=== PATIENT | male | born 1950 | race Caucasian/White ===

== ENCOUNTER 2017-01-08 02:19 | Emergency (ER) | payer BC ==
[~2017-01-08] VITALS: Ht 185.4 cm; Wt 79.2 kg
[~2017-01-08 02:19] MED LIST: ACYCLOVIR400 MG PO; ANTI-FUNGAL12 TOP; ANUCORT-HC25 MG RE; CHLORTHALID25 MG PO; FENTANYL50 MCG/HR TD; FLEXERIL OR; FLEXERIL10 MG PO; KETOROLAC60 MG/2 ML IJ; LOPRESSOR25 MG PO; METHADONE40 MG OR; METOPROLOL25 M1 OR; MORPHINE SUL30 M3 OR; MORPHINE SUL30 M3 PO; MORPHINE SUL30 M5; MS CONTIN30 MG PO; ONDANSETRON4 MG PO; OXYCONTIN40 MG; OXYCONTIN40 MG OR; OXYCONTIN40 MG PO; PENICILLIN VK250 MG PO; PERCOCET 5/325M1 TAB OR; PHENERGAN SUP12.5 MG RE; PROCTOSOL HC2.5 % RE; RESTORIL15 MG PO; ROBAXIN-750750 MG OR; ROXICODONE30 MG OR; TOBRAMYCIN0.3 % OS; ULTRAM50 M1 OR; ULTRAM50 M1 PO; VALTREX500 MG PO
[2017-01-08] MEDS ORDERED: AMOXICILLIN500 MG PO (02:37)
[2017-01-08] MEDS ORDERED: CLINDAMYCIN300 M1 PO (02:59)
[2017-01-08] MEDS ORDERED: IBUPROFEN600 MG PO (02:59)
[2017-01-08 03:24] VITALS: BP 142/83
== END 2017-01-08 03:25 | disposition home or self-care (01) | DRG 159 ==
LOC: ED 02:19
DX: K08.89 Other specified disorders of teeth and supporting structures (principal); K05.10 Chronic gingivitis, plaque induced

== ENCOUNTER 2017-06-14 06:08 | Emergency (ER) | payer MEDICARE, MEDICAID ==
[~2017-06-14] VITALS: Ht 185.4 cm; Wt 80.4 kg
[~2017-06-14 06:08] MED LIST changes: +AMOXICILLIN500 MG PO; +CLINDAMYCIN300 M1 PO; +IBUPROFEN600 MG PO
[2017-06-14 07:29] VITALS: BP 147/83
== END 2017-06-14 07:54 | disposition home or self-care (01) ==
LOC: ED 06:08
DX: G89.29 Other chronic pain (principal); M54.5 Low back pain; M62.830 Muscle spasm of back

== ENCOUNTER 2017-06-30 22:27 | Emergency (ER) | payer MEDICARE, MEDICAID ==
[~2017-06-30] VITALS: Ht 185.4 cm; Wt 81.8 kg
--- NOTE | 2017-06-30 23:05 | NUR ---
BREATHING TREATMENT GIVEN. BREATHING TECH. FOR GOOD DEPOSITION TO THE LUNGS.
[2017-06-30 23:30] LABS: HEMATOCRIT 42.8 % (39.0-50.0); HEMOGLOBIN 14.7 g/dl (14.0-18.0); IMMATURE GRANULOCYTES 0.5 % (0.0-1.0); MEAN CELL VOLUME 91.5 fL CALC (80.0-100.0); MEAN CORPUSCULAR HGB 31.4 pG CALC (26.0-32.0); MEAN CORPUSCULAR HGB CONC 34.3 g/L CALC (32.0-36.0); NEUT# 3.17 thou/uL (1.82-7.42); RED BLOOD COUNT 4.68 mill/uL (4.70-6.10); RED CELL DISTRI WIDTH 11.5 % (11.5-15.5)
[2017-06-30 23:38] LABS: ALBUMIN 4.4 g/dL (3.2-5.0); ALKALINE PHOSPHATASE 80 u/l (38-126); ANION GAP 15 (6-22 (CALC)); BILIRUBIN, TOTAL 0.5 mg/dL (0.0-1.4); BUN 22 mg/dL (8-23); BUN/CREATININE RATIO 25 (12-20 (CALC)); CALCIUM 9.7 mg/dL (8.4-10.2); CARBON DIOXIDE 31 mmol/l (22-30); CHLORIDE 101 mmol/l (95-108); CREATININE 0.9 mg/dL (0.7-1.3); GFR > 60 ML/MIN (>=60 (CALC)); GFR FOR AFR.AMER. > 60 ML/MIN (>=60 (CALC)); GLUCOSE 150 mg/dL (82-115); POTASSIUM 4.1 mmol/l (3.5-5.1); SGOT/AST 25 u/l (19-48); SGPT/ALT 31 u/l (11-66); SODIUM 143 mmol/l (137-146); TOTAL PROTEIN 7.7 g/dL (6.3-8.2)
[2017-06-30 23:50] LABS: MYOGLOBIN 36 ng/mL (0 - 121)
[2017-07-01] MEDS ORDERED: VENTOLIN HFA IN (01:09)
[2017-07-01] MEDS ORDERED: AMOXICILLIN500 M2 PO (01:09)
[2017-07-01] MEDS ORDERED: MEDDOSEPAK PO (01:09)
[2017-07-01 01:20] VITALS: BP 155/77
== END 2017-07-01 01:20 | disposition home or self-care (01) ==
LOC: ED 22:27
PROVIDERS: Emergency Medicine
DX: J44.1 Chronic obstructive pulmonary disease with (acute) exacerbation (principal); M06.9 Rheumatoid arthritis, unspecified; I48.91 Unspecified atrial fibrillation; Z87.442 Personal history of urinary calculi; R06.02 Shortness of breath

== ENCOUNTER 2017-08-08 04:03 | Emergency (ER) | payer MEDICARE, MEDICAID ==
[~2017-08-08] VITALS: Ht 185.4 cm; Wt 80.8 kg
[~2017-08-08 04:03] MED LIST changes: +AMOXICILLIN500 M2 PO; +MEDDOSEPAK PO; +VENTOLIN HFA IN
[2017-08-08 04:30] VITALS: BP 157/99
== END 2017-08-08 04:30 | disposition home or self-care (01) ==
LOC: ED 04:03
DX: F11.23 Opioid dependence with withdrawal (principal); T40.2X5A Adverse effect of other opioids, initial encounter; Y92.009 Unspecified place in unspecified non-institutional (private) residence as the place of occurrence of the external cause; M54.9 Dorsalgia, unspecified; M06.9 Rheumatoid arthritis, unspecified

== ENCOUNTER 2017-08-10 07:09 | Emergency (ER) | payer MEDICARE, MEDICAID ==
[~2017-08-10] VITALS: Ht 185.4 cm; Wt 79.0 kg
[2017-08-10 07:44] LABS: HEMATOCRIT 47.4 % (39.0-50.0); HEMOGLOBIN 16.6 g/dl (14.0-18.0); IMMATURE GRANULOCYTES 0.4 % (0.0-1.0); MEAN CELL VOLUME 88.9 fL CALC (80.0-100.0); MEAN CORPUSCULAR HGB 31.1 pG CALC (26.0-32.0); NEUT# 6.22 thou/uL (1.82-7.42); RED BLOOD COUNT 5.33 mill/uL (4.70-6.10); RED CELL DISTRI WIDTH 11.7 % (11.5-15.5)
[2017-08-10 08:00] LABS: ALBUMIN 4.6 g/dL (3.2-5.0); ALKALINE PHOSPHATASE 91 u/l (38-126); ANION GAP 21 (6-22 (CALC)); BUN 21 mg/dL (8-23); BUN/CREATININE RATIO 21 (12-20 (CALC)); CALCIUM 9.6 mg/dL (8.4-10.2); CARBON DIOXIDE 20 mmol/l (22-30); CHLORIDE 105 mmol/l (95-108); GFR > 60 ML/MIN (>=60 (CALC)); GFR FOR AFR.AMER. > 60 ML/MIN (>=60 (CALC)); GLUCOSE 231 mg/dL (82-115); POTASSIUM 3.7 mmol/l (3.5-5.1); SGOT/AST 27 u/l (19-48); SGPT/ALT 24 u/l (11-66); SODIUM 142 mmol/l (137-146); TOTAL PROTEIN 7.6 g/dL (6.3-8.2)
[2017-08-10] MEDS ORDERED: ZOFRAN4 MG/TAB PO (08:52)
[2017-08-10] MEDS ORDERED: CATAPRES0.1 MG PO (08:52)
[2017-08-10 09:09] VITALS: BP 148/90
== END 2017-08-10 09:15 | disposition home or self-care (01) ==
LOC: ED 07:09
PROVIDERS: Emergency Medicine
DX: F11.23 Opioid dependence with withdrawal (principal); T40.2X5A Adverse effect of other opioids, initial encounter; R53.1 Weakness; R11.2 Nausea with vomiting, unspecified; R19.7 Diarrhea, unspecified; F41.9 Anxiety disorder, unspecified; R00.2 Palpitations; R06.02 Shortness of breath; Y92.009 Unspecified place in unspecified non-institutional (private) residence as the place of occurrence of the external cause

== ENCOUNTER 2017-08-24 05:30 | Emergency (ER) | payer MEDICARE, MEDICAID ==
[~2017-08-24] VITALS: Ht 185.4 cm; Wt 79.0 kg
[~2017-08-24 05:30] MED LIST changes: +CATAPRES0.1 MG PO; +ZOFRAN4 MG/TAB PO
[2017-08-24 06:03] LABS: HEMATOCRIT 44.8 % (39.0-50.0); HEMOGLOBIN 15.2 g/dl (14.0-18.0); IMMATURE GRANULOCYTES 0.6 % (0.0-1.0); MEAN CELL VOLUME 91.8 fL CALC (80.0-100.0); MEAN CORPUSCULAR HGB 31.1 pG CALC (26.0-32.0); MEAN CORPUSCULAR HGB CONC 33.9 g/L CALC (32.0-36.0); NEUT# 8.24 thou/uL (1.82-7.42); RED BLOOD COUNT 4.88 mill/uL (4.70-6.10); RED CELL DISTRI WIDTH 11.9 % (11.5-15.5)
[2017-08-24 06:11] LABS: ALBUMIN 3.9 g/dL (3.2-5.0); ALKALINE PHOSPHATASE 78 u/l (38-126); ANION GAP 17 (6-22 (CALC)); BILIRUBIN, TOTAL 0.7 mg/dL (0.0-1.4); BUN 22 mg/dL (8-23); BUN/CREATININE RATIO 24 (12-20 (CALC)); CALCIUM 8.4 mg/dL (8.4-10.2); CARBON DIOXIDE 20 mmol/l (22-30); CHLORIDE 107 mmol/l (95-108); CREATININE 0.9 mg/dL (0.7-1.3); GFR > 60 ML/MIN (>=60 (CALC)); GFR FOR AFR.AMER. > 60 ML/MIN (>=60 (CALC)); GLUCOSE 220 mg/dL (82-115); MAGNESIUM 1.6 mg/dL (1.6-2.3); POTASSIUM 4.3 mmol/l (3.5-5.1); SGOT/AST 22 u/l (19-48); SGPT/ALT 31 u/l (11-66); SODIUM 140 mmol/l (137-146); TOTAL PROTEIN 6.3 g/dL (6.3-8.2)
[2017-08-24 06:34] LABS: URINE BILIRUBIN - DIPSTICK NEGATIVE (NEGATIVE); URINE BLOOD DIPSTICK NEGATIVE (NEGATIVE); URINE COLOR YELLOW; URINE GLUCOSE - DIPSTICK NEGATIVE (NEGATIVE); URINE KETONE NEGATIVE (NEGATIVE); URINE LEUK ESTERASE NEGATIVE (NEGATIVE); URINE NITRITE - DIPSTICK NEGATIVE (Negative); URINE PROTEIN - DIPSTICK NEGATIVE (NEG-TRACE); URINE SPECIFIC GRAVITY <=1.005; URINE UROBILINOGEN - DIPSTICK 0.2 E.U./dL (0.2)
[2017-08-24 06:35] LABS: URINE CLARITY CLEAR
[2017-08-24 06:41] LABS: BARBITURATES NEGATIVE (NEGATIVE); COCAINE NEGATIVE (NEGATIVE); METHADONE NEGATIVE (NEGATIVE); OXCYCODONE NEGATIVE (NEGATIVE); TETRAHYDROCANNABIONOL NEGATIVE (NEGATIVE); TRICYLIC ANTIDEPRESSANTS NEGATIVE (NEGATIVE)
[2017-08-24 07:41] VITALS: BP 128/76
== END 2017-08-24 08:00 | disposition home or self-care (01) ==
LOC: ED 05:30
PROVIDERS: Emergency Medicine
DX: I47.1 Supraventricular tachycardia (principal); M06.9 Rheumatoid arthritis, unspecified; I48.91 Unspecified atrial fibrillation

== ENCOUNTER 2017-11-04 08:47 | Emergency (ER) | payer MEDICARE, MEDICAID ==
[~2017-11-04] VITALS: Ht 185.4 cm; Wt 100.0 kg
[2017-11-04] MEDS ORDERED: BLOOD THINNER (09:37)
[2017-11-04] MEDS ORDERED: [UNRECOGNIZED DRUG - REMARK] (09:38)
[2017-11-04 09:43] LABS: HEMATOCRIT 46.9 % (39.0-50.0); HEMOGLOBIN 16.1 g/dl (14.0-18.0); IMMATURE GRANULOCYTES 0.7 % (0.0-1.0); MEAN CELL VOLUME 91.1 fL CALC (80.0-100.0); MEAN CORPUSCULAR HGB 31.3 pG CALC (26.0-32.0); MEAN CORPUSCULAR HGB CONC 34.3 g/L CALC (32.0-36.0); NEUT# 7.6 thou/uL (1.82-7.42); RED BLOOD COUNT 5.15 mill/uL (4.70-6.10); RED CELL DISTRI WIDTH 11.8 % (11.5-15.5)
[2017-11-04 09:50] LABS: BUN 28 mg/dL (8-23); BUN/CREATININE RATIO 24 (12-20 (CALC)); CARBON DIOXIDE 24 mmol/l (22-30); CHLORIDE 104 mmol/l (95-108); CREATININE 1.2 mg/dL (0.7-1.3); GFR > 60 ML/MIN (>=60 (CALC)); GFR FOR AFR.AMER. > 60 ML/MIN (>=60 (CALC)); SODIUM 143 mmol/l (137-146)
[2017-11-04 09:51] LABS: ANION GAP 18 (6-22 (CALC)); POTASSIUM 3.4 mmol/l (3.5-5.1)
[2017-11-04 10:32] VITALS: BP 114/67
== END 2017-11-04 10:32 | disposition home or self-care (01) ==
LOC: ED 08:47 → ED-I 10:02 → ED 10:32
PROVIDERS: Family Medicine
DX: I47.1 Supraventricular tachycardia (principal); E11.9 Type 2 diabetes mellitus without complications

== ENCOUNTER 2018-06-28 10:55 | Emergency (ER) | payer MEDICARE, MEDICAID ==
[~2018-06-28] VITALS: Ht 185.4 cm; Wt 84.1 kg
[~2018-06-28 10:55] MED LIST changes: +BLOOD THINNER; +[UNRECOGNIZED DRUG - REMARK]
[2018-06-28] MEDS ORDERED: FENTANYL25 MCG/HR TD (11:22)
[2018-06-28] MEDS ORDERED: MORPHINE SUL30 M5 PO (11:23)
[2018-06-28] MEDS ORDERED: GLIMEPIRIDE2 MG PO (11:24)
[2018-06-28] MEDS ORDERED: METOPROL TAR25 MG PO (11:24)
[2018-06-28] MEDS ORDERED: PROAIR HFA108 MCG/AC IN (12:03)
[2018-06-28 12:07] VITALS: BP 146/84
== END 2018-06-28 12:10 | disposition home or self-care (01) ==
LOC: ED 10:55
DX: J44.9 Chronic obstructive pulmonary disease, unspecified (principal); R05 Cough; E11.9 Type 2 diabetes mellitus without complications

== ENCOUNTER 2018-08-14 18:26 | Emergency (ER) | payer MEDICARE, MEDICAID ==
[~2018-08-14] VITALS: Ht 185.4 cm; Wt 81.8 kg
[~2018-08-14 18:26] MED LIST changes: +FENTANYL25 MCG/HR TD; +GLIMEPIRIDE2 MG PO; +METOPROL TAR25 MG PO; +MORPHINE SUL30 M5 PO; +PROAIR HFA108 MCG/AC IN
[2018-08-14 19:18] LABS: HEMOGLOBIN 14.3 g/dl (14.0-18.0); IMMATURE GRANULOCYTES 0.8 % (0.0-5.0); MEAN CORPUSCULAR HGB 31.2 pG CALC (26.0-32.0); MEAN CORPUSCULAR HGB CONC 35.4 g/L CALC (32.0-36.0); NEUT# 6.38 thou/uL (1.82-7.42); RED BLOOD COUNT 4.59 mill/uL (4.70-6.10); RED CELL DISTRI WIDTH 11.6 % (11.5-15.5)
[2018-08-14 19:22] LABS: HEMATOCRIT 40.4 % (39.0-50.0)
[2018-08-14 19:32] LABS: ALBUMIN 3.5 g/dL (3.2-5.0); ALKALINE PHOSPHATASE 70 u/l (38-126); AMYLASE 71 u/l (30-110); ANION GAP 15 (6-22 (CALC)); BILIRUBIN, TOTAL 0.4 mg/dL (0.0-1.4); BUN 18 mg/dL (8-23); BUN/CREATININE RATIO 23 (12-20 (CALC)); CARBON DIOXIDE 22 mmol/l (22-30); CHLORIDE 107 mmol/l (95-108); CREATININE 0.8 mg/dL (0.7-1.3); GFR > 60 ML/MIN (>=60 (CALC)); GFR FOR AFR.AMER. > 60 ML/MIN (>=60 (CALC)); LIPASE 58 u/l (23-300); POTASSIUM 3.4 mmol/l (3.5-5.1); SGOT/AST 16 u/l (19-48); SODIUM 140 mmol/l (137-146); TOTAL PROTEIN 6.4 g/dL (6.3-8.2)
[2018-08-14] MEDS ORDERED: ZITHROMAX500 MG PO (21:14)
[2018-08-14 21:31] VITALS: BP 162/83
[2018-08-14 22:10] LABS: URINE BILIRUBIN - DIPSTICK NEGATIVE (NEGATIVE); URINE BLOOD DIPSTICK NEGATIVE (NEGATIVE); URINE COLOR YELLOW; URINE GLUCOSE - DIPSTICK NEGATIVE (NEGATIVE); URINE KETONE 15 mg/dL (NEGATIVE); URINE LEUK ESTERASE NEGATIVE (NEGATIVE); URINE NITRITE - DIPSTICK NEGATIVE (Negative); URINE PH 5.5 (4.5-8.0); URINE PROTEIN - DIPSTICK NEGATIVE (NEG-TRACE); URINE SPECIFIC GRAVITY 1.025; URINE UROBILINOGEN - DIPSTICK 0.2 E.U./dL (0.2)
== END 2018-08-14 21:46 | disposition home or self-care (01) ==
LOC: ED 18:26
DX: J18.9 Pneumonia, unspecified organism (principal); K80.80 Other cholelithiasis without obstruction; R10.11 Right upper quadrant pain
CPT/HCPCS: Q9967

== ENCOUNTER 2018-10-10 04:10 | Observation (INO) | payer MEDICARE, MEDICAID ==
[~2018-10-10] VITALS: Ht 185.4 cm; Wt 79.4 kg
[~2018-10-10 04:10] MED LIST changes: +ZITHROMAX500 MG PO
[2018-10-10 04:59] LABS: HEMATOCRIT 44.4 % (39.0-50.0); HEMOGLOBIN 15.6 g/dl (14.0-18.0); IMMATURE GRANULOCYTES 0.4 % (0.0-5.0); MEAN CELL VOLUME 89.2 fL CALC (80.0-100.0); MEAN CORPUSCULAR HGB 31.3 pG CALC (26.0-32.0); MEAN CORPUSCULAR HGB CONC 35.1 g/L CALC (32.0-36.0); NEUT# 6.24 thou/uL (1.82-7.42); RED BLOOD COUNT 4.98 mill/uL (4.70-6.10); RED CELL DISTRI WIDTH 12.1 % (11.5-15.5)
[2018-10-10 05:05] LABS: ALKALINE PHOSPHATASE 77 u/l (38-126); BILIRUBIN, TOTAL 0.8 mg/dL (0.0-1.4); BUN 18 mg/dL (8-23); BUN/CREATININE RATIO 20 (12-20 (CALC)); CHLORIDE 109 mmol/l (95-108); CREATININE 0.9 mg/dL (0.7-1.3); GFR > 60 ML/MIN (>=60 (CALC)); GFR FOR AFR.AMER. > 60 ML/MIN (>=60 (CALC)); POTASSIUM 3.4 mmol/l (3.5-5.1); SGOT/AST 27 u/l (19-48); SODIUM 141 mmol/l (137-146); TOTAL PROTEIN 7.2 g/dL (6.3-8.2)
[2018-10-10 05:06] LABS: ANION GAP 18 (6-22 (CALC)); CARBON DIOXIDE 17 mmol/l (22-30)
[2018-10-10 05:18] LABS: MYOGLOBIN 38 ng/mL (0 - 121)
[2018-10-10] MEDS ORDERED: ATORVASTATIN CA10 MG PO (05:20)
[2018-10-10] MEDS ORDERED: CLONIDINE0.1 MG PO (05:26)
[2018-10-10] MEDS ORDERED: DURAGESIC75 MCG/H1 TD (05:26)
[2018-10-10] MEDS ORDERED: GABAPENTIN100 MG PO (05:29)
[2018-10-10] MEDS ORDERED: MORPHINE SUL30 M3 PO (05:34)
[2018-10-10] MEDS ORDERED: ZOFRAN4 MG PO (05:34)
[2018-10-10] MEDS ORDERED: VENTOLIN H108 MCG/AC IN (05:37)
[2018-10-10 05:57] LABS: CHOLESTEROL HDL RATIO 3.1 (<4.4 (CALC))
[2018-10-10 06:00] VITALS: BP 128/80
[2018-10-10 06:02] LABS: URINE BILIRUBIN - DIPSTICK NEGATIVE (NEGATIVE); URINE BLOOD DIPSTICK NEGATIVE (NEGATIVE); URINE COLOR YELLOW; URINE GLUCOSE - DIPSTICK NEGATIVE (NEGATIVE); URINE KETONE 15 mg/dL (NEGATIVE); URINE LEUK ESTERASE NEGATIVE (NEGATIVE); URINE NITRITE - DIPSTICK NEGATIVE (Negative); URINE PH 6.5 (4.5-8.0); URINE PROTEIN - DIPSTICK NEGATIVE (NEG-TRACE); URINE SPECIFIC GRAVITY 1.015; URINE UROBILINOGEN - DIPSTICK 0.2 E.U./dL (0.2)
[2018-10-10 09:03] VITALS: BP 133/81
[2018-10-10 11:40] VITALS: BP 150/92
[2018-10-10 16:09] VITALS: BP 151/85
[2018-10-10 19:02] VITALS: BP 123/67
[2018-10-10 23:32] VITALS: BP 119/75
[2018-10-11 04:44] VITALS: BP 137/78
[2018-10-11 08:34] VITALS: BP 175/91
[2018-10-11 08:42] LABS: HEMOGLOBIN 14.2 g/dl (14.0-18.0); MEAN CELL VOLUME 89.7 fL CALC (80.0-100.0); MEAN CORPUSCULAR HGB 31.1 pG CALC (26.0-32.0); MEAN CORPUSCULAR HGB CONC 34.6 g/L CALC (32.0-36.0); RED BLOOD COUNT 4.57 mill/uL (4.70-6.10)
[2018-10-11 09:09] LABS: ANION GAP 14 (6-22 (CALC)); BUN 11 mg/dL (8-23); BUN/CREATININE RATIO 15 (12-20 (CALC)); CHLORIDE 103 mmol/l (95-108); CREATININE 0.7 mg/dL (0.7-1.3); GFR > 60 ML/MIN (>=60 (CALC)); GFR FOR AFR.AMER. > 60 ML/MIN (>=60 (CALC)); POTASSIUM 3.3 mmol/l (3.5-5.1); SODIUM 137 mmol/l (137-146)
[2018-10-11 09:44] LABS: CARBON DIOXIDE 23 mmol/l (22-30)
[2018-10-11 11:21] VITALS: BP 153/87
[2018-10-11] MEDS ORDERED: FENTANYL25 MCG/HR TD (12:49)
[2018-10-11] MEDS ORDERED: TRAMADOL HCL50 MG PO (12:49)
== END 2018-10-11 13:32 | disposition home or self-care (01) ==
LOC: ED 04:10 → ED-I 05:10 → ED 05:41 → MS2 05:42
PROVIDERS: Emergency Medicine; Nurse Practitioner Family; ADMIT Internal Medicine; ATTEND Internal Medicine
DX: I47.1 Supraventricular tachycardia (principal); F11.23 Opioid dependence with withdrawal; R74.8 Abnormal levels of other serum enzymes; E11.9 Type 2 diabetes mellitus without complications; E86.0 Dehydration; E87.6 Hypokalemia; G89.4 Chronic pain syndrome; Z87.891 Personal history of nicotine dependence; Z79.84 Long term (current) use of oral hypoglycemic drugs; R00.2 Palpitations; R11.2 Nausea with vomiting, unspecified; R19.7 Diarrhea, unspecified
CPT/HCPCS: J0153

== ENCOUNTER 2019-08-31 | Emergency (ER) | payer MEDICARE, MEDICAID ==
[~2019-08-31] MED LIST changes: +ATORVASTATIN CA10 MG PO; +CLONIDINE0.1 MG PO; +DURAGESIC75 MCG/H1 TD; +GABAPENTIN100 MG PO; +TRAMADOL HCL50 MG PO; +VENTOLIN H108 MCG/AC IN; +ZOFRAN4 MG PO
[2019-08-31 19:01] LABS: HEMATOCRIT 42.2 % (39.0-50.0); HEMOGLOBIN 14.4 g/dl (14.0-18.0); IMMATURE GRANULOCYTES 0.5 % (0.0-5.0); MEAN CORPUSCULAR HGB 31.7 pG CALC (26.0-32.0); MEAN CORPUSCULAR HGB CONC 34.1 g/L CALC (32.0-36.0); NEUT# 4.53 thou/uL (1.82-7.42); RED BLOOD COUNT 4.54 mill/uL (4.70-6.10); RED CELL DISTRI WIDTH 11.9 % (11.5-15.5)
[2019-08-31 19:09] LABS: ACT PARTIAL THROMBO TIME 25.1 SECONDS (20.0-32.5); PROTHROMBIN TIME 10.1 SECONDS (9.0-12.5)
[2019-08-31 19:11] LABS: ALKALINE PHOSPHATASE 64 u/l (38-126); ANION GAP 14 (6-22 (CALC)); BILIRUBIN, TOTAL 0.5 mg/dL (0.0-1.4); BUN 22 mg/dL (8-23); BUN/CREATININE RATIO 21 (12-20 (CALC)); CARBON DIOXIDE 25 mmol/l (22-30); CHLORIDE 105 mmol/l (95-108); GFR > 60 ML/MIN (>=60 (CALC)); GFR FOR AFR.AMER. > 60 ML/MIN (>=60 (CALC)); POTASSIUM 4.8 mmol/l (3.5-5.1); SGOT/AST 18 u/l (19-48); SODIUM 139 mmol/l (137-146)
== END 2019-08-31 19:49 | disposition home or self-care (01) ==
DX: I47.1 Supraventricular tachycardia (principal); E11.9 Type 2 diabetes mellitus without complications; Z79.84 Long term (current) use of oral hypoglycemic drugs
CPT/HCPCS: J0153

== ENCOUNTER 2019-10-10 | Emergency (ER) | payer MEDICARE, MEDICAID ==
--- NOTE | 2019-10-10 18:53 | NUR ---
BREATHING TREATMENT GIVEN. BREATHING TECH. FOR GOOD DEPOSITION TO THE LUNGS.
[2019-10-10 18:57] LABS: HEMATOCRIT 38.1 % (39.0-50.0); HEMOGLOBIN 12.8 g/dl (14.0-18.0); IMMATURE GRANULOCYTES 0.5 % (0.0-5.0); MEAN CELL VOLUME 91.4 fL CALC (80.0-100.0); MEAN CORPUSCULAR HGB 30.7 pG CALC (26.0-32.0); MEAN CORPUSCULAR HGB CONC 33.6 g/L CALC (32.0-36.0); NEUT# 6.05 thou/uL (1.82-7.42); RED BLOOD COUNT 4.17 mill/uL (4.70-6.10); RED CELL DISTRI WIDTH 11.4 % (11.5-15.5)
[2019-10-10 19:22] LABS: ACT PARTIAL THROMBO TIME 27.2 SECONDS (20.0-32.5); INTERNATIONAL NORMALIZED RATIO 0.9 RATIO (0.7-1.3); PROTHROMBIN TIME 9.8 SECONDS (9.0-12.5)
[2019-10-10 19:37] LABS: ALBUMIN 3.8 g/dL (3.2-5.0); ALKALINE PHOSPHATASE 75 u/l (38-126); ANION GAP 12 (6-22 (CALC)); BUN 17 mg/dL (8-23); BUN/CREATININE RATIO 24 (12-20 (CALC)); CARBON DIOXIDE 30 mmol/l (22-30); CHLORIDE 97 mmol/l (95-108); CREATININE 0.7 mg/dL (0.7-1.3); GFR > 60 ML/MIN (>=60 (CALC)); GFR FOR AFR.AMER. > 60 ML/MIN (>=60 (CALC)); LIPASE 11 u/l (23-300); POTASSIUM 4.4 mmol/l (3.5-5.1); SGOT/AST 18 u/l (19-48); SODIUM 135 mmol/l (137-146)
[2019-10-10 19:41] LABS: BILIRUBIN, TOTAL 0.9 mg/dL (0.0-1.4)
[2019-10-10] MEDS ORDERED: METFORMIN1000 MG PO (22:05)
[2019-10-10] MEDS ORDERED: [UNRECOGNIZED DRUG - OTHER] TD (22:06)
[2019-10-10] MEDS ORDERED: ULTRAM50 M1 PO (22:07)
[2019-10-10] MEDS ORDERED: ZITHROMAX Z-PA250 MG PO (22:20)
== END 2019-10-10 23:01 | disposition home or self-care (01) ==
DX: J40 Bronchitis, not specified as acute or chronic (principal); E11.9 Type 2 diabetes mellitus without complications; R06.02 Shortness of breath

== ENCOUNTER 2019-10-27 12:19 | Emergency (ER) | payer MEDICARE, MEDICAID ==
[~2019-10-27 12:19] MED LIST changes: +METFORMIN1000 MG PO; +ZITHROMAX Z-PA250 MG PO; +[UNRECOGNIZED DRUG - OTHER] TD
== END 2019-10-27 12:40 | disposition left against medical advice (07) ==
LOC: ED 12:19 → LWOBS 12:39
DX: Z53.21 Procedure and treatment not carried out due to patient leaving prior to being seen by health care provider (principal)

== ENCOUNTER 2019-10-29 | Emergency (ER) | payer MEDICARE, MEDICAID | END 2019-10-29 10:02 | disposition home or self-care (01) | DX: T75.89XA Other specified effects of external causes, initial encounter (principal); E11.9 Type 2 diabetes mellitus without complications; X58.XXXA Exposure to other specified factors, initial encounter; Y92.009 Unspecified place in unspecified non-institutional (private) residence as the place of occurrence of the external cause; Z79.84 Long term (current) use of oral hypoglycemic drugs ==

== ENCOUNTER 2020-03-02 08:34 | Emergency (ER) | payer MEDICARE, MEDICAID ==
[~2020-03-02] VITALS: Ht 185.4 cm; Wt 80.0 kg
[2020-03-02 09:12] LABS: HEMATOCRIT 41.5 % (39.0-50.0); HEMOGLOBIN 13.7 g/dl (14.0-18.0); IMMATURE GRANULOCYTES 0.7 % (0.0-5.0); MEAN CELL VOLUME 91.4 fL CALC (80.0-100.0); MEAN CORPUSCULAR HGB 30.2 pG CALC (26.0-32.0); NEUT# 3.52 thou/uL (1.82-7.42); RED BLOOD COUNT 4.54 mill/uL (4.70-6.10); RED CELL DISTRI WIDTH 11.9 % (11.5-15.5)
[2020-03-02 09:30] LABS: ALBUMIN 4.5 g/dL (3.2-5.0); ALKALINE PHOSPHATASE 64 u/l (38-126); ANION GAP 12 (6-22 (CALC)); BILIRUBIN, TOTAL 0.3 mg/dL (0.0-1.4); BUN 18 mg/dL (8-23); BUN/CREATININE RATIO 19 (12-20 (CALC)); CARBON DIOXIDE 30 mmol/l (22-30); CHLORIDE 100 mmol/l (95-108); CREATININE 0.9 mg/dL (0.7-1.3); GFR > 60 ML/MIN (>=60 (CALC)); GFR FOR AFR.AMER. > 60 ML/MIN (>=60 (CALC)); POTASSIUM 3.9 mmol/l (3.5-5.1); SGOT/AST 26 u/l (19-48); SODIUM 138 mmol/l (137-146); TOTAL PROTEIN 7.5 g/dL (6.3-8.2)
[2020-03-02 10:22] LABS: URINE BILIRUBIN - DIPSTICK NEGATIVE (NEGATIVE); URINE BLOOD DIPSTICK NEGATIVE (NEGATIVE); URINE COLOR YELLOW; URINE GLUCOSE - DIPSTICK NEGATIVE (NEGATIVE); URINE KETONE NEGATIVE (NEGATIVE); URINE LEUK ESTERASE NEGATIVE (NEGATIVE); URINE NITRITE - DIPSTICK NEGATIVE (Negative); URINE PH 5.5 (4.5-8.0); URINE PROTEIN - DIPSTICK NEGATIVE (NEG-TRACE); URINE UROBILINOGEN - DIPSTICK 0.2 E.U./dL (0.2)
[2020-03-02 10:50] VITALS: BP 130/92
[2020-03-02] MEDS ORDERED: TRESIBA FL100 UNIT/M SC (10:50)
== END 2020-03-02 10:50 | disposition home or self-care (01) ==
LOC: ED 08:34
PROVIDERS: Family Medicine
DX: R55 Syncope and collapse (principal); I48.92 Unspecified atrial flutter; E11.9 Type 2 diabetes mellitus without complications; Z79.84 Long term (current) use of oral hypoglycemic drugs

== ENCOUNTER 2020-03-18 16:09 | Observation (INO) | payer MEDICARE, MEDICAID ==
[~2020-03-18] VITALS: Ht 185.4 cm; Wt 77.1 kg
[~2020-03-18 16:09] MED LIST changes: +TRESIBA FL100 UNIT/M SC
--- NOTE | 2020-03-18 16:12 | NUR ---
pt to room #6 with steady gait for bedside triage
--- NOTE | 2020-03-18 16:15 | NUR ---
HEART RATE 187. 6 MG OF ADENOSINE GIVEN RAPID IVP BY MONIKA BRENNAN. PT TOLERATED WELL. 1617 PATIENT CONVERTED TO NORMAL SINUS RHYTHM AT A RATE 86.
[2020-03-18 16:32] LABS: HEMOGLOBIN 15.2 g/dl (14.0-18.0); IMMATURE GRANULOCYTES 0.6 % (0.0-5.0); MEAN CELL VOLUME 91.5 fL CALC (80.0-100.0); MEAN CORPUSCULAR HGB 30.2 pG CALC (26.0-32.0); NEUT# 5.82 thou/uL (1.82-7.42); RED BLOOD COUNT 5.03 mill/uL (4.70-6.10); RED CELL DISTRI WIDTH 11.9 % (11.5-15.5)
--- NOTE | 2020-03-18 16:40 | NUR ---
PT RESTING, TELE CONTINUES TO READ SR RATE IN THE 80'S
[2020-03-18 16:52] LABS: ALBUMIN 4.5 g/dL (3.2-5.0); ALKALINE PHOSPHATASE 77 u/l (38-126); ANION GAP 15 (6-22 (CALC)); BUN 24 mg/dL (8-23); BUN/CREATININE RATIO 24 (12-20 (CALC)); CARBON DIOXIDE 25 mmol/l (22-30); CHLORIDE 101 mmol/l (95-108); GFR > 60 ML/MIN (>=60 (CALC)); GFR FOR AFR.AMER. > 60 ML/MIN (>=60 (CALC)); POTASSIUM 4.3 mmol/l (3.5-5.1); SGOT/AST 22 u/l (19-48); SODIUM 136 mmol/l (137-146); TOTAL PROTEIN 7.3 g/dL (6.3-8.2)
[2020-03-18 17:11] LABS: BILIRUBIN, TOTAL 0.3 mg/dL (0.0-1.4)
[2020-03-18 17:22] LABS: TSH, 3RD GENERATION 3.46 uIU/mL (0.47 - 4.68)
--- NOTE | 2020-03-18 17:30 | NUR ---
MD AT BEDSIDE TO DISCUSS RESULTS AND PLAN OF CARE. PT SINUS RHYTHM ON THE MONITOR AT A RATE OF 80.
[2020-03-18] MEDS ORDERED: FLEXERIL5 MG PO (17:34)
--- NOTE | 2020-03-18 17:37 | NUR ---
PATIENT CURRENTLY DOES NOT HAVE HIS FENTANYL PATCH ON STATING HE TOOK IT OFF BEFORE HE CAME IN. HE STATES THAT "IM GOING TO CLIMB THE LOPEZ IF I DON'T HAVE MY PATCH.
--- NOTE | 2020-03-18 18:05 | NUR ---
REPORT CALLED KEISHA
--- NOTE | 2020-03-18 18:28 | NUR ---
Admission Note Report Given to: sbar printed to floor Transported by: X Wheelchair Stretcher Transported with: X Nurse Transporter X Patent IV O2 X Apartment Maintenance Manager Location: ICU X [facility]
[2020-03-18 18:30] VITALS: BP 149/88
--- NOTE | 2020-03-18 18:30 | NUR ---
REPORT WAS RECEIVED FROM MONIKA BRENNAN STATED TELE READING WAS SR79. PT CAME FROM ER VIA WHEELCHAIR BY CARMEN NEVES. PT AMBULATED TO BED. TELE IN PLACE. SAFETY PRECAUTIONS REINFORCED AND CALL LIGHT IN REACH.
--- NOTE | 2020-03-18 19:44 | NUR ---
REPORT RECEIVED FROM Raymon SOLANO RN, CARE OF PT ASSUMED AT THIS TIME.
--- NOTE | 2020-03-18 21:45 | NUR ---
PT LAYING IN BED RESTING, NO APPARENT DISTRESS, RESPIRATIONS REG & UNLABORED. PHYSICAL ASSESMENT COMPLETE. PT CURRENTLY DENIES PAIN OR DISCOMFORT, REQUEST PRN RESTORIL AND FLEXERIL. PRN FLEXERIL AND RESTORIL ADMINISTERED, SCHEDULED MEDS ADMINISTERED, SEE E-MAR. PT DENIES FURTHER NEEDS AT THIS TIME. PLAN OF CARE REVIEWED, PT DENIES QUESTIONS, VERBALIZES UNDERSTANDING. WITHIN REACH, BED LOCKED IN LOW POSITION W/ BEDRAILS UP X2. CALL ZAVALA WITHIN REACH, AGREES TO CALL PRN.
[2020-03-19] VITALS: BP 119/74
--- NOTE | 2020-03-19 02:11 | NUR ---
PT APPEARS TO BE SLEEPING COMFORTABLY, NO APPARENT DISTRESS, RESPIRATIONS REGULAR AND UNLABORED. ITEMS REMAIN WITHIN REACH, BED REMAINS LOCKED IN LOW POSITION W/ BEDRAILS UP X2. CALL ZAVALA REMAINS WITHIN REACH.
[2020-03-19 04:00] VITALS: BP 145/79
[2020-03-19 04:44] LABS: HEMATOCRIT 40.4 % (39.0-50.0); HEMOGLOBIN 13.3 g/dl (14.0-18.0); IMMATURE GRANULOCYTES 0.5 % (0.0-5.0); MEAN CORPUSCULAR HGB 30.3 pG CALC (26.0-32.0); MEAN CORPUSCULAR HGB CONC 32.9 g/dL CAL (32.0-36.0); NEUT# 3.08 thou/uL (1.82-7.42); RED BLOOD COUNT 4.39 mill/uL (4.70-6.10); RED CELL DISTRI WIDTH 11.9 % (11.5-15.5)
[2020-03-19 04:54] LABS: ANION GAP 5 (6-22 (CALC)); BUN 21 mg/dL (8-23); BUN/CREATININE RATIO 28 (12-20 (CALC)); CARBON DIOXIDE 29 mmol/l (22-30); CHLORIDE 105 mmol/l (95-108); CREATININE 0.8 mg/dL (0.7-1.3); GFR > 60 ML/MIN (>=60 (CALC)); GFR FOR AFR.AMER. > 60 ML/MIN (>=60 (CALC)); SODIUM 135 mmol/l (137-146)
--- NOTE | 2020-03-19 05:43 | NUR ---
ASSESMENT UNCHANGED FROM BEGINING OF SHIFT BASELINE ASSESMENT. AM HEMODYNAMICS WNL/ STABLE. PT AFEBRILE. PT DENIES NEEDS AT THIS TIME. ITEMS REMAIN WITHIN REACH, BED REMAINS LOCKED IN LOW POSITION W/ BEDRAILS UP X2. CALL ZAVALA REMAINS WITHIN REACH, AGREES TO CALL PRN.
--- NOTE | 2020-03-19 06:57 | NUR ---
Raymon RECINOS SENIOR BI DEVELOPER REPORTS AM FINGER STICK GLUCOSE 55mg/dl. PT ASYMPTOMATIC. ORANGE JUICE PROVIDED. PT TOLERATED. ENCOURAGED PT TO COMPLETE BREAKFAST THIS AM. PT AGREES.
[2020-03-19 09:08] VITALS: BP 119/68
--- NOTE | 2020-03-19 10:35 | NUR ---
PT IN BED WITH EYES OPEN AND ABLE TO VERBALIZE NEEDS. MEDICATIONS GIVEN AND TOLERATING WELL. SKIN IS WARM TO TOUCH. MEDICATIONS GIVEN AND TOLERATED WELL. CONTINENT OF B/B AND ABLE TO GO TO BATHROOM WITH NO ASSIST NEEDED. BLOOD SUGAR RECHECKED AND 182. DENIES PAIN OR DISCOMFORT. FENTANYL PATCH LOCATED ON RIGHT UPPER THIGH. CALL LIGHT WITHIN REACH AND CALL LIGHT WITHIN REACH.
[2020-03-19 11:11] VITALS: BP 133/76
--- NOTE | 2020-03-19 14:01 | NUR ---
PT WAS DISCHARGE THIS AFTERNOON HOME. ALL PERTINENT PAPERS SIGNED AND EDUCATION DONE WITH PT ON MEDICATIONS, INDICATIONS, ETC. PATIENT STATES THAT HE UNDERSTANDS. eXPLAINED DIFFERENT FORM OF METOPROLOL BEING PRESCRIBED AND HOW TO ADMINISTER AND PT STATES THAT HE UNDERSTANDS THE EDUCATION AND WILL FOLLOW U- WITH PCP FOR FURTHUR INSTRUCTIONS. ALL PERTINENT PAPERS AND BELONGINGS TAKEN WITH PT. AMBUALATED TO VEHICLE WITH STAFF STANDB ASSIST. iv WAS REMOVED AND TELEMETRY REMOVED AND PT TOLERATED WELL.
== END 2020-03-19 13:24 | disposition home or self-care (01) ==
LOC: ED 16:09 → ED-I 16:40 → ED 16:40 → ED-I 16:48 → ED 17:30 → MS2 17:31 → ED-I 17:31 → MS2 18:04
PROVIDERS: Family Medicine; ADMIT Internal Medicine; ATTEND Internal Medicine
DX: I47.1 Supraventricular tachycardia (principal); E11.9 Type 2 diabetes mellitus without complications; Z79.4 Long term (current) use of insulin; Z87.891 Personal history of nicotine dependence; Z20.828 Contact with and (suspected) exposure to other viral communicable diseases
CPT/HCPCS: G0378

== ENCOUNTER 2020-06-03 13:29 | Emergency (ER) | payer MEDICARE, MEDICAID ==
[~2020-06-03] VITALS: Ht 185.4 cm; Wt 79.0 kg
[~2020-06-03 13:29] MED LIST changes: +FLEXERIL5 MG PO
[2020-06-03 14:12] LABS: HEMATOCRIT 45.8 % (39.0-50.0); HEMOGLOBIN 15.2 g/dl (14.0-18.0); IMMATURE GRANULOCYTES 0.3 % (0.0-5.0); MEAN CELL VOLUME 91.2 fL CALC (80.0-100.0); MEAN CORPUSCULAR HGB 30.3 pG CALC (26.0-32.0); MEAN CORPUSCULAR HGB CONC 33.2 g/dL CAL (32.0-36.0); NEUT# 5.71 thou/uL (1.82-7.42); RED BLOOD COUNT 5.02 mill/uL (4.70-6.10); RED CELL DISTRI WIDTH 11.9 % (11.5-15.5)
[2020-06-03 14:38] LABS: ALBUMIN 4.4 g/dL (3.2-5.0); ALKALINE PHOSPHATASE 64 u/l (38-126); ANION GAP 16 (6-22 (CALC)); BILIRUBIN, TOTAL 0.3 mg/dL (0.0-1.4); BUN 17 mg/dL (8-23); BUN/CREATININE RATIO 18 (12-20 (CALC)); CARBON DIOXIDE 24 mmol/l (22-30); CHLORIDE 102 mmol/l (95-108); CREATININE 0.9 mg/dL (0.7-1.3); GFR > 60 ML/MIN (>=60 (CALC)); GFR FOR AFR.AMER. > 60 ML/MIN (>=60 (CALC)); POTASSIUM 4.2 mmol/l (3.5-5.1); SGOT/AST 26 u/l (19-48); SODIUM 137 mmol/l (137-146); TOTAL PROTEIN 7.1 g/dL (6.3-8.2)
[2020-06-03 14:41] LABS: ACT PARTIAL THROMBO TIME 25.1 SECONDS (20.0-32.5); PROTHROMBIN TIME 9.7 SECONDS (9.0-12.5)
[2020-06-03 15:01] LABS: URINE BILIRUBIN - DIPSTICK NEGATIVE (NEGATIVE); URINE BLOOD DIPSTICK NEGATIVE (NEGATIVE); URINE COLOR YELLOW; URINE GLUCOSE - DIPSTICK NEGATIVE (NEGATIVE); URINE KETONE NEGATIVE (NEGATIVE); URINE LEUK ESTERASE NEGATIVE (NEGATIVE); URINE NITRITE - DIPSTICK NEGATIVE (Negative); URINE PH 5.5 (4.5-8.0); URINE PROTEIN - DIPSTICK NEGATIVE (NEG-TRACE); URINE SPECIFIC GRAVITY <=1.005; URINE UROBILINOGEN - DIPSTICK 0.2 E.U./dL (0.2)
[2020-06-03 15:41] VITALS: BP 103/50
== END 2020-06-03 15:58 | disposition home or self-care (01) ==
LOC: ED 13:29
PROVIDERS: Student in an Organized Health Care Education/Training Program
DX: I47.1 Supraventricular tachycardia (principal); E11.9 Type 2 diabetes mellitus without complications; I10 Essential (primary) hypertension; Z79.4 Long term (current) use of insulin
CPT/HCPCS: J0153

== ENCOUNTER 2021-04-09 14:57 | Emergency (ER) | payer MEDICARE, MEDICAID ==
[~2021-04-09 14:57] MED LIST changes: +FLECAINIDE50 MG PO; +TRULICITY1.5 MG/0.5 SC
[2021-04-09 15:49] LABS: HEMATOCRIT 48.5 % (39.0-50.0); HEMOGLOBIN 16.2 g/dl (14.0-18.0); IMMATURE GRANULOCYTES 0.4 % (0.0-5.0); MEAN CELL VOLUME 92.6 fL CALC (80.0-100.0); MEAN CORPUSCULAR HGB 30.9 pG CALC (26.0-32.0); MEAN CORPUSCULAR HGB CONC 33.4 g/dL CAL (32.0-36.0); NEUT# 12.23 thou/uL (1.82-7.42); RED BLOOD COUNT 5.24 mill/uL (4.70-6.10); RED CELL DISTRI WIDTH 11.6 % (11.5-15.5)
[2021-04-09 16:04] LABS: ALBUMIN 4.4 g/dL (3.2-5.0); ALKALINE PHOSPHATASE 79 u/l (38-126); BUN 20 mg/dL (8-23); BUN/CREATININE RATIO 21 (12-20 (CALC)); CHLORIDE 100 mmol/l (95-108); CREATININE 0.9 mg/dL (0.7-1.3); GFR > 60 ML/MIN (>=60 (CALC)); GFR FOR AFR.AMER. > 60 ML/MIN (>=60 (CALC)); POTASSIUM 3.7 mmol/l (3.5-5.1); SGOT/AST 32 u/l (19-48); SODIUM 139 mmol/l (137-146); TOTAL PROTEIN 8.2 g/dL (6.3-8.2)
[2021-04-09 16:06] LABS: ANION GAP 21 (6-22 (CALC)); BILIRUBIN, TOTAL 0.3 mg/dL (0.0-1.4); CARBON DIOXIDE 22 mmol/l (22-30)
[2021-04-09 16:53] VITALS: BP 131/65
== END 2021-04-09 16:55 | disposition home or self-care (01) ==
LOC: ED 14:57
PROVIDERS: Family Medicine
DX: I47.1 Supraventricular tachycardia (principal); I10 Essential (primary) hypertension; E11.9 Type 2 diabetes mellitus without complications; Z79.4 Long term (current) use of insulin; Z20.822 Contact with and (suspected) exposure to COVID-19

== ENCOUNTER 2021-04-19 21:46 | Emergency (ER) | payer MEDICARE, MEDICAID | END 2021-04-19 23:55 | disposition left against medical advice (07) | LOC: ED 21:46 → LWOBS 23:55 | DX: Z53.21 Procedure and treatment not carried out due to patient leaving prior to being seen by health care provider (principal) ==

== ENCOUNTER → 2021-04-19 | Day surgery (SDC) | payer MEDICARE, MEDICAID ==
--- NOTE | 2021-03-28 13:57 | NUR ---
PER CHRISTELLE IN PRE-OP THE PATIENT CAME IN THIS MORING AND SATATED HE WASN'T FEELING WELL AND WANTED TO RESCHEDULE HIS SURGERY. HE WAS INFORMED TO CALL THE OFFICE WHEN READY TO RESCHEDULE.
[2021-04-19 13:07] VITALS: BP 181/86
== END | disposition home or self-care (01) ==
LOC: ORM 03-28 07:00
PROVIDERS: ATTEND Surgery
PROC: 0YU54JZ Supplement Right Inguinal Region with Synthetic Substitute, Percutaneous Endoscopic Approach (ICD-10-PCS; principal; 2021-04-19)
PROC: 0VBF4ZZ Excision of Right Spermatic Cord, Percutaneous Endoscopic Approach (ICD-10-PCS; 2021-04-19)
DX: K40.90 Unilateral inguinal hernia, without obstruction or gangrene, not specified as recurrent (principal); D17.6 Benign lipomatous neoplasm of spermatic cord; E11.9 Type 2 diabetes mellitus without complications; Z87.442 Personal history of urinary calculi; Z79.84 Long term (current) use of oral hypoglycemic drugs
CPT/HCPCS: C1781; J0131; J2710

== ENCOUNTER 2022-06-01 10:27 | Emergency (ER) | payer MEDICARE, MEDICAID ==
[~2022-06-01] VITALS: Ht 185.4 cm; Wt 79.3 kg
[2022-06-01] VITALS (13 sets, daily range): BP systolic 104–150; BP diastolic 63–80
[2022-06-01 11:15] LABS: HEMATOCRIT 45.4 % (39.0-50.0); HEMOGLOBIN 15.4 g/dl (14.0-18.0); IMMATURE GRANULOCYTES 0.4 % (0.0-5.0); MEAN CELL VOLUME 94.2 fL CALC (80.0-100.0); MEAN CORPUSCULAR HGB CONC 33.9 g/dL CAL (32.0-36.0); NEUT# 4.28 thou/uL (1.82-7.42); RED BLOOD COUNT 4.82 mill/uL (4.70-6.10)
[2022-06-01 11:45] LABS: ALBUMIN 4.4 g/dL (3.2-5.0); ALKALINE PHOSPHATASE 69 u/l (38-126); BUN 19 mg/dL (8-23); BUN/CREATININE RATIO 17 (12-20 (CALC)); CHLORIDE 104 mmol/l (95-108); CREATININE 1.1 mg/dL (0.7-1.3); GFR FOR AFR.AMER. > 60 ML/MIN (>=60 (CALC)); GFR OTHER RACES > 60 ML/MIN (>=60 (CALC)); POTASSIUM 3.8 mmol/l (3.5-5.1); SGOT/AST 31 u/l (19-48); SODIUM 138 mmol/l (137-146); TOTAL PROTEIN 7.6 g/dL (6.3-8.2)
[2022-06-01 11:47] LABS: ANION GAP 15 (6-22 (CALC)); BILIRUBIN, TOTAL 0.7 mg/dL (0.0-1.4); CARBON DIOXIDE 23 mmol/l (22-30)
[2022-06-01] MEDS ORDERED: METOPROL TAR25 M1 PO (12:10)
[2022-06-01] MEDS ORDERED: FLECAINIDE50 MG PO (12:10)
== END 2022-06-01 12:38 | disposition home or self-care (01) ==
LOC: ED 10:27
PROVIDERS: Nurse Practitioner
DX: I48.91 Unspecified atrial fibrillation (principal); T46.2X6A Underdosing of other antidysrhythmic drugs, initial encounter; T44.7X6A Underdosing of beta-adrenoreceptor antagonists, initial encounter; E11.9 Type 2 diabetes mellitus without complications; Z91.128 Patient's intentional underdosing of medication regimen for other reason; Z79.84 Long term (current) use of oral hypoglycemic drugs; Z79.899 Other long term (current) drug therapy

== ENCOUNTER 2022-06-06 01:49 | Emergency (ER) | payer MEDICARE, MEDICAID ==
[~2022-06-06] VITALS: Ht 185.4 cm; Wt 77.2 kg
[~2022-06-06 01:49] MED LIST changes: +METOPROL TAR25 M1 PO
[2022-06-06 02:02] VITALS: BP 160/84
[2022-06-06 02:30] VITALS: BP 158/85
[2022-06-06 02:35] LABS: HEMATOCRIT 39.5 % (39.0-50.0); HEMOGLOBIN 13.7 g/dl (14.0-18.0); IMMATURE GRANULOCYTES 0.1 % (0.0-5.0); MEAN CELL VOLUME 93.8 fL CALC (80.0-100.0); MEAN CORPUSCULAR HGB 32.5 pG CALC (26.0-32.0); MEAN CORPUSCULAR HGB CONC 34.7 g/dL CAL (32.0-36.0); NEUT# 5.33 thou/uL (1.82-7.42); RED BLOOD COUNT 4.21 mill/uL (4.70-6.10); RED CELL DISTRI WIDTH 11.9 % (11.5-15.5)
[2022-06-06 02:44] LABS: ALBUMIN 4.3 g/dL (3.2-5.0); ALKALINE PHOSPHATASE 52 u/l (38-126); ANION GAP 14 (6-22 (CALC)); BUN 23 mg/dL (8-23); BUN/CREATININE RATIO 23 (12-20 (CALC)); CARBON DIOXIDE 26 mmol/l (22-30); CHLORIDE 104 mmol/l (95-108); GFR FOR AFR.AMER. > 60 ML/MIN (>=60 (CALC)); GFR OTHER RACES > 60 ML/MIN (>=60 (CALC)); POTASSIUM 3.8 mmol/l (3.5-5.1); SGOT/AST 23 u/l (19-48); SODIUM 140 mmol/l (137-146); TOTAL PROTEIN 6.5 g/dL (6.3-8.2)
[2022-06-06 03:01] VITALS: BP 171/83
[2022-06-06 03:09] LABS: BILIRUBIN, TOTAL 0.2 mg/dL (0.0-1.4)
[2022-06-06 03:35] VITALS: BP 156/82
[2022-06-06 03:58] LABS: URINE BILIRUBIN - DIPSTICK NEGATIVE (NEGATIVE); URINE BLOOD DIPSTICK SMALL (NEGATIVE); URINE COLOR YELLOW; URINE GLUCOSE - DIPSTICK NEGATIVE (NEGATIVE); URINE KETONE TRACE mg/dL (NEGATIVE); URINE LEUK ESTERASE NEGATIVE (NEGATIVE); URINE PROTEIN - DIPSTICK NEGATIVE (NEG-TRACE); URINE UROBILINOGEN - DIPSTICK 0.2 E.U./dL (0.2)
[2022-06-06 04:00] VITALS: BP 141/79
[2022-06-06 04:02] LABS: URINE NITRITE - DIPSTICK NEGATIVE (Negative)
[2022-06-06] MEDS ORDERED: TAMSULOSIN0.4 MG PO (04:13)
[2022-06-06] MEDS ORDERED: LORTAB5 PO (04:13)
[2022-06-06 04:17] VITALS: BP 141/79
[2022-06-06 04:30] LABS: URINE SQUAMOUS EPITHELIAL CELL FEW EPI/hpf (0-FEW); URINE WBC 0-2 WBC/hpf (0-5)
== END 2022-06-06 04:33 | disposition home or self-care (01) ==
LOC: ED 01:49
PROVIDERS: Family Medicine
DX: N13.2 Hydronephrosis with renal and ureteral calculous obstruction (principal); E11.9 Type 2 diabetes mellitus without complications; Z87.442 Personal history of urinary calculi; Z79.85 Long-term (current) use of injectable non-insulin antidiabetic drugs; Z79.84 Long term (current) use of oral hypoglycemic drugs

== ENCOUNTER 2022-06-08 13:08 | Emergency (ER) | payer MEDICARE, MEDICAID ==
[~2022-06-08] VITALS: Ht 185.4 cm; Wt 80.0 kg
[~2022-06-08 13:08] MED LIST changes: +LORTAB5 PO; +TAMSULOSIN0.4 MG PO
[2022-06-08 13:33] LABS: HEMATOCRIT 41.8 % (39.0-50.0); HEMOGLOBIN 14.3 g/dl (14.0-18.0); IMMATURE GRANULOCYTES 0.1 % (0.0-5.0); MEAN CELL VOLUME 94.1 fL CALC (80.0-100.0); MEAN CORPUSCULAR HGB 32.2 pG CALC (26.0-32.0); MEAN CORPUSCULAR HGB CONC 34.2 g/dL CAL (32.0-36.0); NEUT# 8.9 thou/uL (1.82-7.42); RED BLOOD COUNT 4.44 mill/uL (4.70-6.10); RED CELL DISTRI WIDTH 11.6 % (11.5-15.5)
[2022-06-08 13:52] LABS: ALBUMIN 4.5 g/dL (3.2-5.0); ALKALINE PHOSPHATASE 64 u/l (38-126); ANION GAP 15 (6-22 (CALC)); BILIRUBIN, TOTAL 0.4 mg/dL (0.0-1.4); BUN 19 mg/dL (8-23); BUN/CREATININE RATIO 19 (12-20 (CALC)); CARBON DIOXIDE 26 mmol/l (22-30); CHLORIDE 100 mmol/l (95-108); GFR FOR AFR.AMER. > 60 ML/MIN (>=60 (CALC)); GFR OTHER RACES > 60 ML/MIN (>=60 (CALC)); POTASSIUM 3.8 mmol/l (3.5-5.1); SGOT/AST 26 u/l (19-48); SODIUM 137 mmol/l (137-146); TOTAL PROTEIN 7.7 g/dL (6.3-8.2)
[2022-06-08 14:45] LABS: URINE BILIRUBIN - DIPSTICK NEGATIVE (NEGATIVE); URINE COLOR RED; URINE GLUCOSE - DIPSTICK NEGATIVE (NEGATIVE); URINE KETONE 40 mg/dL (NEGATIVE); URINE PROTEIN - DIPSTICK 100 mg/dL (NEG-TRACE); URINE SPECIFIC GRAVITY 1.025
[2022-06-08 14:46] LABS: URINE BLOOD DIPSTICK LARGE (NEGATIVE); URINE LEUK ESTERASE NEGATIVE (NEGATIVE); URINE NITRITE - DIPSTICK NEGATIVE (Negative)
[2022-06-08 14:48] LABS: URINE COARSE GRANULAR CAST FEW lpf; URINE RBC 50-100 RBC/hpf (0-5); URINE WBC 0-2 WBC/hpf (0-5)
[2022-06-08] MEDS ORDERED: TORADOL PO (15:10)
[2022-06-08 15:24] VITALS: BP 168/85
== END 2022-06-08 15:25 | disposition home or self-care (01) ==
LOC: ED 13:08
PROVIDERS: Family Medicine
DX: N13.2 Hydronephrosis with renal and ureteral calculous obstruction (principal); E11.9 Type 2 diabetes mellitus without complications; Z79.84 Long term (current) use of oral hypoglycemic drugs; Z87.442 Personal history of urinary calculi

== ENCOUNTER 2022-07-24 07:18 | Day surgery (SDC) | payer MEDICARE, MEDICAID ==
[~2022-07-24] VITALS: Ht 185.4 cm; Wt 77.1 kg
[~2022-07-24 07:18] MED LIST changes: +TORADOL PO; +TRULICITY0.75 MG/0. SC; -TRULICITY1.5 MG/0.5 SC
[2022-07-24 10:05] VITALS: BP 126/99
== END 2022-07-24 10:20 | disposition home or self-care (01) ==
LOC: ORM 07:18
PROVIDERS: ATTEND Physical Medicine & Rehabilitation
DX: M47.816 Spondylosis without myelopathy or radiculopathy, lumbar region (principal)

== ENCOUNTER 2023-03-26 07:52 | Day surgery (SDC) | payer MEDICARE, MEDICAID ==
[~2023-03-26] VITALS: Ht 185.4 cm; Wt 79.4 kg
[2023-03-26 10:23] VITALS: BP 149/87
== END 2023-03-26 10:15 | disposition home or self-care (01) ==
LOC: ORM 07:52
PROVIDERS: ATTEND Physical Medicine & Rehabilitation Pain Medicine
DX: G89.4 Chronic pain syndrome (principal); S39.012S Strain of muscle, fascia and tendon of lower back, sequela; M62.830 Muscle spasm of back; M43.06 Spondylolysis, lumbar region

== ENCOUNTER 2023-04-16 08:32 | Day surgery (SDC) | payer MEDICARE, MEDICAID ==
[2023-04-16 11:13] VITALS: BP 139/87
== END 2023-04-16 11:32 | disposition home or self-care (01) ==
LOC: ORM 08:32
PROVIDERS: ATTEND Physical Medicine & Rehabilitation
DX: M43.06 Spondylolysis, lumbar region (principal); G89.4 Chronic pain syndrome; M62.830 Muscle spasm of back; S39.012S Strain of muscle, fascia and tendon of lower back, sequela

== ENCOUNTER 2023-06-04 08:37 | Day surgery (SDC) | payer MEDICARE, MEDICAID ==
[~2023-06-04] VITALS: Ht 185.4 cm; Wt 79.4 kg
[2023-06-04 11:34] VITALS: BP 154/95
== END 2023-06-04 11:22 | disposition home or self-care (01) ==
LOC: ORM 08:37
PROVIDERS: ATTEND Physical Medicine & Rehabilitation Pain Medicine
DX: M43.06 Spondylolysis, lumbar region (principal); G89.4 Chronic pain syndrome; S39.012S Strain of muscle, fascia and tendon of lower back, sequela; M62.830 Muscle spasm of back

== ENCOUNTER 2023-09-05 19:14 | Emergency (ER) | payer MEDICARE, MEDICAID ==
[2023-09-05] VITALS (12 sets, daily range): BP systolic 95–126; BP diastolic 56–84
[~2023-09-05] VITALS: Ht 185.4 cm; Wt 79.8 kg
[~2023-09-05 19:14] MED LIST changes: +MOTRIN800 MG PO; +TRAMADOL HYDROC50 M1 PO
[2023-09-05 19:52] LABS: BASO% 0.8 % (0-3); EOS% 7.4 % (0-8); HEMATOCRIT 40.7 % (39.0-50.0); HEMOGLOBIN 14.4 g/dl (14.0-18.0); IMMATURE GRANULOCYTES 0.5 % (0.0-5.0); LYMPH% 31.3 % (15-41); MEAN CELL VOLUME 90.6 fL CALC (80.0-100.0); MEAN CORPUSCULAR HGB 32.1 pG CALC (26.0-32.0); MEAN CORPUSCULAR HGB CONC 35.4 g/dL CAL (32.0-36.0); MONO% 6.8 % (2-13); NEUT# 4.71 thou/uL (1.82-7.42); NEUT% 53.2 % (42-76); RED BLOOD COUNT 4.49 mill/uL (4.70-6.10); RED CELL DISTRI WIDTH 11.4 % (11.5-15.5)
[2023-09-05 20:12] LABS: ALBUMIN 4.1 g/dL (3.2-5.0); ALKALINE PHOSPHATASE 71 u/l (38-126); ANION GAP 13 (6-22 (CALC)); BILIRUBIN, TOTAL 0.4 mg/dL (0.2-1.3); BUN 21 mg/dL (8-23); BUN/CREATININE RATIO 23 (12-20 (CALC)); CARBON DIOXIDE 25 mmol/l (22-30); CHLORIDE 105 mmol/l (95-108); CREATININE 0.9 mg/dL (0.7-1.3); GFR FOR AFR.AMER. > 60 ML/MIN (>=60 (CALC)); GFR OTHER RACES > 60 ML/MIN (>=60 (CALC)); POTASSIUM 4.1 mmol/l (3.5-5.1); SGOT/AST 27 u/l (19-48); SODIUM 139 mmol/l (137-146); TOTAL PROTEIN 6.3 g/dL (6.3-8.2)
[2023-09-05 21:26] LABS: URINE BILIRUBIN - DIPSTICK Negative (NEGATIVE); URINE BLOOD DIPSTICK Negative (NEGATIVE); URINE GLUCOSE - DIPSTICK 250 mg/dL (NEGATIVE); URINE KETONE Negative (NEGATIVE); URINE LEUK ESTERASE Negative (NEGATIVE); URINE NITRITE - DIPSTICK Negative (Negative); URINE PROTEIN - DIPSTICK Negative (NEG-TRACE); URINE SPECIFIC GRAVITY 1.025; URINE UROBILINOGEN - DIPSTICK 0.2 E.U./dL (0.2)
[2023-09-05 21:32] LABS: URINE COLOR Yellow
== END 2023-09-05 22:14 | disposition home or self-care (01) ==
LOC: ED 19:14
PROVIDERS: Family Medicine
DX: I48.92 Unspecified atrial flutter (principal); E11.9 Type 2 diabetes mellitus without complications

== ENCOUNTER 2024-07-26 17:00 | Emergency (ER) | payer MEDICARE, MEDICAID ==
[2024-07-26] VITALS (14 sets, daily range): BP systolic 103–140; BP diastolic 54–87
[~2024-07-26] VITALS: Ht 185.4 cm; Wt 77.0 kg
[2024-07-26 17:40] LABS: BASO% 0.5 % (0-3); EOS% 3.2 % (0-8); HEMATOCRIT 42.4 % (39.0-50.0); HEMOGLOBIN 14.5 g/dl (14.0-18.0); IMMATURE GRANULOCYTES 0.7 % (0.0-5.0); LYMPH% 31.2 % (15-41); MEAN CORPUSCULAR HGB 31.8 pG CALC (26.0-32.0); MEAN CORPUSCULAR HGB CONC 34.2 g/dL CAL (32.0-36.0); NEUT# 4.92 thou/uL (1.82-7.42); NEUT% 56.4 % (42-76); RED BLOOD COUNT 4.56 mill/uL (4.70-6.10); RED CELL DISTRI WIDTH 12.1 % (11.5-15.5)
[2024-07-26 18:01] LABS: ALBUMIN 4.2 g/dL (3.2-5.0); BILIRUBIN, TOTAL 0.3 mg/dL (0.2-1.3); CREATININE 1.1 mg/dL (0.7-1.3); MAGNESIUM 1.8 mg/dL (1.6-2.3); TOTAL PROTEIN 7.1 g/dL (6.3-8.2)
[2024-07-26 19:28] LABS: URINE BILIRUBIN - DIPSTICK Negative (NEGATIVE); URINE COLOR Yellow; URINE GLUCOSE - DIPSTICK 100 mg/dL (NEGATIVE); URINE KETONE Negative (NEGATIVE); URINE PH 5.5 (4.5-8.0); URINE PROTEIN - DIPSTICK Negative (NEG-TRACE); URINE SPECIFIC GRAVITY >=1.030
[2024-07-26 19:29] LABS: URINE BLOOD DIPSTICK Negative (NEGATIVE); URINE LEUK ESTERASE Negative (NEGATIVE); URINE NITRITE - DIPSTICK Negative (Negative); URINE UROBILINOGEN - DIPSTICK 0.2 E.U./dL (0.2)
== END 2024-07-26 20:12 | disposition left against medical advice (07) ==
LOC: ED 17:00
PROVIDERS: Nurse Practitioner
DX: I47.10 Supraventricular tachycardia, unspecified (principal); I48.91 Unspecified atrial fibrillation; E11.9 Type 2 diabetes mellitus without complications; Z79.84 Long term (current) use of oral hypoglycemic drugs; Z53.29 Procedure and treatment not carried out because of patient's decision for other reasons